=== PATIENT | female | born 1945 | race Caucasian/White ===

== ENCOUNTER 2017-12-22 08:03 | Outpatient (CLI) | payer MEDICARE, BC ==
--- NOTE | 2017-12-22 09:05 | CT ---
CT ABDOMEN AND PELVIS NONCONTRAST: History: Left flank pain. FINDINGS: Each renal collecting system, ureter, and urinary bladder are decompressed without stone evident. Phl eboliths are seen outside of the course of each ureter within the pelvis. Lack of contrast limits evaluation for other abnormalities. Linear scarring is present at the lung ba ses. There are degenerative changes lumbar spine. Diverticula arise from the colon without adjacent i nflammation. 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 IMPRESSION: No CT evidence of urinary tract obstruction or calcification. POS: [facility]
== END 2017-12-22 08:04 | disposition home or self-care (01) ==
LOC: RAD-BREN 08:03
PROVIDERS: ATTEND Family Medicine
DX: R10.9 Unspecified abdominal pain (principal)
CPT/HCPCS: 74176

== ENCOUNTER 2021-01-12 14:33 | Inpatient (IN) | payer OTHER, MEDICARE, BC ==
[2021-01-12] MEDS ORDERED: Boostrix 0.5 ML (Tdap) VIAL ONE (15:42)
[2021-01-12 15:52] LABS: #Basophils 0.1 thou/uL (0.0-0.2); #Eosinphils 0.1 thou/uL (0.0-0.7); #Lymphocytes 1.5 thou/uL (1.20-3.40); #Monocytes 0.7 thou/uL (0.11-0.59); #Neutrophils 8.7 thou/uL (1.40-6.50); %Basophils 0.8 % (0.0-1.0); %Eosinophils 0.6 % (0.0-10.0); %Lymphocytes 13.3 % (21.0-51.0); %Monocytes 6.3 % (0.0-10.0); Hemoglobin 14.6 g/dL (12.0-16.0); Mean Corpuscular HGB CONC 33.8 g/dL (32.0-36.0); Mean Corpuscular Hemoglobin 31.9 pg (27.0-31.0); Mean Corpuscular Volume 94.6 fL (78.0-98.0); Mean Platelet Volume 7.7 fL (7.4-10.4); Platelet Count 240 thou/uL (130-400); RBC Distribution Width 11.5 % (11.5-14.5); Red Blood Cell (RBC) Count 4.57 mill/uL (4.20-5.40)
[2021-01-12 15:52] LABS: ALT (SGPT) 11 U/L (8-55); AST (SGOT) 19 U/L (5-34); Albumin 4.1 g/dL (3.4-4.8); Alkaline Phosphatase 73 U/L (40-110); Anion Gap 15 mmol/L (10-20); BUN (Urea Nitrogen) 14 mg/dL (9.8-20.1); Bilirubin, Total 0.6 mg/dL (0.2-1.2); Calc. Creatinine Clearance 0 mL/min (70-130); Calcium 9.4 mg/dL (7.8-10.44); Carbon Dioxide 22 mmol/L (23-31); Chloride 107 mmol/L (98-107); Globulin 2.6 g/dL (2.4-3.5); Glucose 111 mg/dL (83-110); Potassium 4.1 mmol/L (3.5-5.1); Protein, Total 6.7 g/dL (5.8-8.1); Sodium 140 mmol/L (136-145)
[2021-01-12] MEDS ORDERED: Morphine 4 MG/ML VIAL ONE (16:01)
[2021-01-12] MEDS ORDERED: Ondansetron PF 4 MG/2 ML Vial ONE (16:01)
[2021-01-12 16:30] LABS: INR-International Normal Ratio 0.9; PTT 25.9 sec (22.9-36.1); Prothrombin Time 12.5 sec (12.0-14.7)
[2021-01-12] MEDS ORDERED: CEFAZOLIN 2 GM in Premix Bag 1 BAG IVPB SCH (17:00)
[2021-01-12] MEDS ORDERED: Morphine 2 MG/ML VIAL ONE (17:54)
[2021-01-12] MEDS ORDERED: Morphine 2 MG/ML VIAL SLOW IVP PRN (18:33)
[2021-01-12] MEDS ORDERED: Dextrose 50% Abboject 50 ML SYRINGE SLOW IVP PRN (18:33)
[2021-01-12] MEDS ORDERED: hydrALAZINE 20 MG/ML VIAL SLOW IVP PRN (18:33)
[2021-01-12] MEDS ORDERED: Ondansetron PF 4 MG/2 ML Vial IVP PRN (18:33)
[2021-01-12] MEDS ORDERED: Dextrose 5% in Water 1,000 ML IV PRN (18:33)
[2021-01-12] MEDS ORDERED: Cyclobenzaprine 10 MG TAB PO PRN (18:35)
[2021-01-12] MEDS ORDERED: traMADol HCl 50 MG TAB PO PRN (18:35)
[2021-01-12 19:17] LABS: SARS-CoV-2 NAA Rapid Test Not Detected (NotDetected)
[2021-01-12] MEDS: Famotidine 20 MG TAB PO SCH (23:02)
[2021-01-12] MEDS: Sodium Chloride 0.9% 1,000 ML IV SCH (23:02)
[2021-01-12 23:13] VITALS: BMI 27.1
[2021-01-12] MEDS: Senokot S 8.6-50 MG TAB PO SCH (23:14)
[2021-01-12] MEDS: Ketorolac Tromethamine 30 MG/ML VIAL IVP SCH (23:17)
[2021-01-12] MEDS: traMADol HCl 50 MG TAB PO SCH (23:18)
[2021-01-12] MEDS: Acetaminophen 500 MG TAB PO SCH (23:19)
[2021-01-13] MEDS: Sodium Chloride 0.9% 1,000 ML IV SCH ×3 (05:02→19:50)
[2021-01-13] MEDS: Ketorolac Tromethamine 30 MG/ML VIAL IVP SCH ×4 (05:31→23:39)
[2021-01-13] MEDS: traMADol HCl 50 MG TAB PO SCH ×4 (05:32→23:42)
[2021-01-13] MEDS: Acetaminophen 500 MG TAB PO SCH ×4 (05:33→23:43)
[2021-01-13 05:52] LABS: #Lymphocytes 1.7 thou/uL (1.20-3.40); #Monocytes 0.9 thou/uL (0.11-0.59); #Neutrophils 5.1 thou/uL (1.40-6.50); %Basophils 0.4 % (0.0-1.0); %Eosinophils 0.4 % (0.0-10.0); %Lymphocytes 22.2 % (21.0-51.0); %Monocytes 11.7 % (0.0-10.0); %Neutrophils 65.2 % (42.0-75.0); Hemoglobin 12.3 g/dL (12.0-16.0); Mean Corpuscular HGB CONC 32.8 g/dL (32.0-36.0); Mean Corpuscular Hemoglobin 31.2 pg (27.0-31.0); Mean Platelet Volume 7.7 fL (7.4-10.4); Platelet Count 207 thou/uL (130-400); RBC Distribution Width 11.4 % (11.5-14.5); Red Blood Cell (RBC) Count 3.95 mill/uL (4.20-5.40); White Blood Cell (WBC) Count 7.7 thou/uL (4.8-10.8)
[2021-01-13 06:12] LABS: Anion Gap 9 mmol/L (10-20); BUN (Urea Nitrogen) 9 mg/dL (9.8-20.1); Calc. Creatinine Clearance 99 mL/min (70-130); Calcium 8.7 mg/dL (7.8-10.44); Carbon Dioxide 26 mmol/L (23-31); Chloride 108 mmol/L (98-107); Glucose 102 mg/dL (83-110); Magnesium 2.2 mg/dL (1.6-2.6); Sodium 139 mmol/L (136-145)
[2021-01-13 06:17] LABS: Phosphorus 3.3 mg/dL (2.3-4.7)
[2021-01-13] MEDS: Polyethylene Glycol 3350 17 GM Packet PO SCH (07:33)
[2021-01-13] MEDS: Famotidine 20 MG TAB PO SCH ×2 (08:09→20:28)
[2021-01-13] MEDS: Senokot S 8.6-50 MG TAB PO SCH ×2 (08:10→20:31)
[2021-01-13] MEDS ORDERED: Fentanyl 100 MCG/2 ML VIAL ONE ×2 (09:58)
[2021-01-13] MEDS ORDERED: ePHEDrine Sulfate 50 MG/10 ML VIAL ONE (10:22)
[2021-01-13] MEDS ORDERED: PROPOFOL 200 MG/20 ML VIAL ONE (10:22)
[2021-01-13] MEDS ORDERED: Ondansetron PF 4 MG/2 ML Vial ONE (10:22)
[2021-01-13] MEDS ORDERED: Lidocaine 1% PF 5 ML VIAL ONE (10:22)
[2021-01-13] MEDS ORDERED: Ondansetron HCl/PF 4 MG/2 ML Vial IVP PRN (12:04)
[2021-01-13] MEDS: CEFAZOLIN 2 GM in Premix Bag 1 BAG IVPB SCH (18:39)
[2021-01-14] MEDS: CEFAZOLIN 2 GM in Premix Bag 1 BAG IVPB SCH (02:23)
[2021-01-14] MEDS: Acetaminophen 500 MG TAB PO SCH ×4 (05:40→23:56)
[2021-01-14] MEDS: traMADol HCl 50 MG TAB PO SCH ×4 (05:41→23:57)
[2021-01-14] MEDS: Sodium Chloride 0.9% 1,000 ML IV SCH (06:04)
[2021-01-14 06:19] LABS: #Eosinphils 0.1 thou/uL (0.0-0.7); #Lymphocytes 1.5 thou/uL (1.20-3.40); #Monocytes 0.8 thou/uL (0.11-0.59); #Neutrophils 5.1 thou/uL (1.40-6.50); %Basophils 0.4 % (0.0-1.0); %Eosinophils 1.4 % (0.0-10.0); %Lymphocytes 19.6 % (21.0-51.0); %Monocytes 11.1 % (0.0-10.0); %Neutrophils 67.4 % (42.0-75.0); Hemoglobin 11.9 g/dL (12.0-16.0); Mean Corpuscular HGB CONC 33.1 g/dL (32.0-36.0); Mean Corpuscular Hemoglobin 31.6 pg (27.0-31.0); Mean Corpuscular Volume 95.3 fL (78.0-98.0); Mean Platelet Volume 7.9 fL (7.4-10.4); Platelet Count 182 thou/uL (130-400); RBC Distribution Width 11.5 % (11.5-14.5); Red Blood Cell (RBC) Count 3.77 mill/uL (4.20-5.40); White Blood Cell (WBC) Count 7.6 thou/uL (4.8-10.8)
[2021-01-14 06:39] LABS: ALT (SGPT) 13 U/L (8-55); AST (SGOT) 24 U/L (5-34); Albumin 3.1 g/dL (3.4-4.8); Alkaline Phosphatase 59 U/L (40-110); Anion Gap 10 mmol/L (10-20); BUN (Urea Nitrogen) 6 mg/dL (9.8-20.1); Bilirubin, Total 0.6 mg/dL (0.2-1.2); Calc. Creatinine Clearance 104 mL/min (70-130); Calcium 8.5 mg/dL (7.8-10.44); Carbon Dioxide 23 mmol/L (23-31); Chloride 109 mmol/L (98-107); Globulin 2.3 g/dL (2.4-3.5); Glucose 92 mg/dL (83-110); Magnesium 2.1 mg/dL (1.6-2.6); Potassium 3.9 mmol/L (3.5-5.1); Protein, Total 5.4 g/dL (5.8-8.1); Sodium 138 mmol/L (136-145)
[2021-01-14] MEDS: Famotidine 20 MG TAB PO SCH ×2 (09:05→20:16)
[2021-01-14] MEDS: Senokot S 8.6-50 MG TAB PO SCH ×2 (09:05→20:16)
[2021-01-14] MEDS: Polyethylene Glycol 3350 17 GM Packet PO SCH (09:06)
[2021-01-14] MEDS: Aspirin 81 mg Enteric Coated Tablet PO SCH ×2 (09:06→20:15)
[2021-01-14] MEDS ORDERED: Cyclobenzaprine 10 MG TAB ONE (10:30)
[2021-01-15] MEDS: Acetaminophen 500 MG TAB PO SCH ×2 (04:59→14:08)
[2021-01-15] MEDS: traMADol HCl 50 MG TAB PO SCH ×2 (05:00→14:08)
[2021-01-15] MEDS: Aspirin 81 mg Enteric Coated Tablet PO SCH (09:58)
[2021-01-15] MEDS: Polyethylene Glycol 3350 17 GM Packet PO SCH (09:58)
[2021-01-15] MEDS: Gabapentin 300 MG CAP PO SCH ×2 (09:58→17:02)
[2021-01-15] MEDS: Senokot S 8.6-50 MG TAB PO SCH (09:59)
[2021-01-15] MEDS: Famotidine 20 MG TAB PO SCH (09:59)
[2021-01-15 15:45] VITALS: BP 133/71; TEMP 98.3
== END 2021-01-15 17:06 | DRG 482 ==
LOC: ERS 14:33 → SDC/OP 17:48 → SJJU 20:00
PROVIDERS: ADMIT Surgery; ATTEND Surgery
PROC: 0QS704Z Reposition Left Upper Femur with Internal Fixation Device, Open Approach (ICD-10-PCS; principal; 2021-01-13)
DX: S72.142A Displaced intertrochanteric fracture of left femur, initial encounter for closed fracture (principal); W01.0XXA Fall on same level from slipping, tripping and stumbling without subsequent striking against object, initial encounter; Z87.891 Personal history of nicotine dependence
CPT/HCPCS: 36415; 70450; 71045; 76000; 80048; 80053; 83735; 84100; 85025; 85610; 85730; 86850; 86900; 86901; 90471; 90715; 93005; 96374; 96375; C1713; G0390; J0360; J0690; J1885; J2270; J2405; J2704; J3010; J7620; U0002